=== PATIENT | male | born 2000 | race Caucasian/White ===

== ENCOUNTER 2020-09-05 19:36 | Emergency (ER) | payer OTHER, MEDICAID, SELFPAY ==
[2020-09-05 19:53] VITALS: BP 191/73; PULSE 88; RESP 18; TEMP 36.4; O2SAT 99; BMI 28.8
[2020-09-05] MEDS: Acetaminophen 325 MG TABLET 975 MG PO (22:10)
[2020-09-05] MEDS: Ketorolac Tromethamine 15 MG/ML VIAL IM (22:10)
[2020-09-05] MEDS: Cyclobenzaprine HCl 5 MG TABLET PO (22:11)
[2020-09-05] MEDS: Lidocaine 4 % Patch ADH..PATCH 1 PATCH TRANSDERMA (22:11)
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
== END 2020-09-05 23:07 | disposition home or self-care (01) ==
PROVIDERS: Emergency Provider Student in an Organized Health Care Education/Training Program; PCP Pediatrics
DX: M62.838 Other muscle spasm (principal)
CPT/HCPCS: 96372; 99284; J1885